=== PATIENT | male | born 1970 | race Caucasian/White ===

== ENCOUNTER 2021-07-01 20:41 | Inpatient (IN) | payer MEDICAID ==
[~2021-07-01] VITALS: Ht 182.9 cm; Wt 88.6 kg
[2021-07-01] MEDS ORDERED: acetaminophen 325mg tablet PO ONE (21:00)
[2021-07-01 21:22] LABS: BASOPHILS # (AUTO) 0.1 X10'3 (0-0.2); BASOPHILS % (AUTO) 0.3 % (0-1); EOSINOPHILS % (AUTO) 0.1 % (0-6); HEMOGLOBIN 14.4 g/dl (14.0-17.9); LYMPHOCYTES # (AUTO) 1.1 X10'3 (1.1-4.8); LYMPHOCYTES % (AUTO) 4.8 % (21-51); MEAN CORPUSCULAR HEMOGLOBIN 27.7 PG (27.0-31.0); MEAN CORPUSCULAR HGB CONC 33.4 g/dL (33.0-36.5); MEAN PLATELET VOLUME 7.6 FL (7.4-10.4); MONOCYTES # (AUTO) 1.5 X10'3 (0-0.9); MONOCYTES % (AUTO) 6.5 % (2-12); NEUTROPHILS # (AUTO) 20.6 X10'3 (1.8-7.7); NEUTROPHILS % (AUTO) 88.3 % (42-75); PLATELET COUNT 565 X10'3 (140-440); RED BLOOD COUNT 5.19 X10'6 (4.70-6.10); RED CELL DISTRIBUTION WIDTH 13.1 % (11.5-14.5); WHITE BLOOD COUNT 23.4 X10'3 (4.5-11.0)
[2021-07-01 21:40] LABS: ALANINE AMINOTRANSFERASE 55 U/L (12-78); ALBUMIN 2.5 G/DL (3.4-5.0); ALBUMIN/GLOBULIN RATIO 0.4 (1.1-1.5); ALKALINE PHOSPHATASE 598 IU/L (46-116); ANION GAP 10 (8-16); ASPARTATE AMINO TRANSFERASE 24 U/L (10-37); BILIRUBIN,TOTAL 1.1 MG/DL (0.1-1.0); BLOOD UREA NITROGEN 9 MG/DL (7-18); BUN/CREATININE RATIO 11.3 (5.4-32.0); CALCIUM 9.3 MG/DL (8.5-10.1); CHLORIDE 89 MMOL/L (99-107); POTASSIUM 3.5 MMOL/L (3.5-5.1); SODIUM 124 MMOL/L (135-145); TOTAL PROTEIN 8.2 G/DL (6.4-8.2); eGFR > 90 ML/MIN
[2021-07-01] MEDS ORDERED: normal saline 1000ML IV soln IV ONE (21:45)
[2021-07-01] MEDS ORDERED: vancomycin/NS 1 GM ADD-VANTAGE 250 ML IV ONE (21:45)
[2021-07-01] MEDS ORDERED: cefepime 1GM/NS ADD-VANTAGE 100 ML IV STA (21:45)
[2021-07-01] MEDS ORDERED: acetaminophen 325mg tablet PO STA (21:45)
[2021-07-01 21:47] LABS: GLUCOSE 499 MG/DL (70-104)
[2021-07-01] MEDS ORDERED: morphine 4 MG/ML inj SYRINge IV PRN (21:50)
[2021-07-01] MEDS ORDERED: ondansetron/PF 4mg/2ml inj IV ONE (21:50)
[2021-07-01] MEDS ORDERED: dextrose 50%-water 50ml dispensing syringe IV PRN ×2 (22:00)
[2021-07-01] MEDS ORDERED: MESSAGE TO PHARMACY PO ONE (22:00)
[2021-07-01] MEDS ORDERED: HYDROcodone/acetaminophen 5mg/325mg tablet PO PRN (22:00)
[2021-07-01] MEDS ORDERED: morphine 2 MG/ML inj. syringe IV PRN (22:00)
[2021-07-01] MEDS ORDERED: DEXTROSE 15 GM of carb/4 tabs (each vial/BOTTLE has 4 tablets) PO PRN ×2 (22:00)
[2021-07-01] MEDS ORDERED: glucagon, human recombinant 1mg kit SUBCUT PRN (22:00)
[2021-07-01] MEDS ORDERED: HYDROcodone/acetaminophen 10/325mg tab PO PRN (22:00)
[2021-07-01] MEDS ORDERED: acetaminophen 325mg tablet PO PRN (22:00)
[2021-07-01] MEDS ORDERED: insulin Lispro (HumaLOG) vial - multi-dose SQ SCH (22:00)
[2021-07-01] MEDS ORDERED: iohexol 350 MG/ML 50ML vial IV ONE (22:08)
[2021-07-01] MEDS ORDERED: iohexol 350MG/ML 100ml bottle IV ONE (22:08)
[2021-07-01] MEDS ORDERED: nicotine 21mg patch - 24 hr TD ONE (22:15)
--- NOTE | 2021-07-01 22:45 | NUR ---
Patient in room CHEMO 360. I have received report from CHARISSE Alex and had the opportunity to ask questions and assume patient care.
--- NOTE | 2021-07-01 23:25 | NUR ---
pt arrived to floor via gurney. pt transferred to bed without problem. pt settled in bed.
[2021-07-01 23:44] LABS: C-REACTIVE PROTEIN 28.18 MG/DL (0.0-0.5)
[2021-07-01] MEDS: normal saline 1000ml 1,000 ML IV SCH (23:45)
[2021-07-02] VITALS (11 sets, daily range): BP systolic 100–141; BP diastolic 51–86
[2021-07-02] MEDS ORDERED: heparin 25,000 UNIT/250ml bag 250 ML IV SCH (00:05)
[2021-07-02] MEDS ORDERED: heparin 10,000 units/1 ML INJ IV PRN (00:05)
[2021-07-02] MEDS ORDERED: heparin 10,000 units/1 ML INJ IV ONE (00:05)
[2021-07-02] MEDS ORDERED: mineral oil 133ml enema RC PRN (00:05)
[2021-07-02] MEDS ORDERED: clindamycin 600mg/D5W 50ml 50 ML IV ONE (00:05)
--- NOTE | 2021-07-02 00:10 | NUR ---
Dr. Jurado at bedside looking at pts wound on L foot. using doppler to find pulse. He didn't hear one. Dr. Jurado left. Within [address] Sebastian was at bedside also checking the wound and leg. discussed briefly with pt about going for surgery today.
[2021-07-02] MEDS: morphine 2 MG/ML inj. syringe IV PRN (03:54)
[2021-07-02] MEDS: vancomycin/NS 1 GM ADD-VANTAGE 250 ML IV SCH ×3 (05:33→22:21)
[2021-07-02 06:33] LABS: BASOPHILS # (AUTO) 0.1 X10'3 (0-0.2); BASOPHILS % (AUTO) 0.2 % (0-1); EOSINOPHILS # (AUTO) 0.1 X10'3 (0-0.9); EOSINOPHILS % (AUTO) 0.3 % (0-6); HEMATOCRIT 39.3 % (42.0-52.0); HEMOGLOBIN 13.4 g/dl (14.0-17.9); LYMPHOCYTES # (AUTO) 1.8 X10'3 (1.1-4.8); LYMPHOCYTES % (AUTO) 7.7 % (21-51); MEAN CORPUSCULAR HEMOGLOBIN 28.2 PG (27.0-31.0); MEAN CORPUSCULAR HGB CONC 34.2 g/dL (33.0-36.5); MEAN CORPUSCULAR VOLUME 82.6 FL (78-98); MEAN PLATELET VOLUME 7.5 FL (7.4-10.4); MONOCYTES # (AUTO) 1.7 X10'3 (0-0.9); MONOCYTES % (AUTO) 7.3 % (2-12); NEUTROPHILS # (AUTO) 19.3 X10'3 (1.8-7.7); NEUTROPHILS % (AUTO) 84.5 % (42-75); PLATELET COUNT 518 X10'3 (140-440); RED BLOOD COUNT 4.76 X10'6 (4.70-6.10); RED CELL DISTRIBUTION WIDTH 13.2 % (11.5-14.5); WHITE BLOOD COUNT 22.9 X10'3 (4.5-11.0)
--- NOTE | 2021-07-02 06:50 | NUR ---
Patient in room CHEMO 360. I have received report from CHARISSE Thomas and had the opportunity to ask questions and assume patient care.
--- NOTE | 2021-07-02 06:51 | NUR ---
Problems reprioritized. Patient report given, questions answered & plan of care reviewed with CHARISSE Estrada.
[2021-07-02 06:57] LABS: BLOOD UREA NITROGEN 8 MG/DL (7-18); BUN/CREATININE RATIO 14.3 (5.4-32.0); CALCIUM 8.8 MG/DL (8.5-10.1); CHLORIDE 94 MMOL/L (99-107); CHOL/HDL RATIO 8.8 (0.00-4.99); CHOLESTEROL 150 MG/DL (0-200); CREATININE 0.56 MG/DL (0.60-1.10); GLUCOSE 161 MG/DL (70-104); HDL CHOLESTEROL 17 MG/DL (35-60); LDL CHOLESTEROL 101 MG/DL (50-100); POTASSIUM 3.1 MMOL/L (3.5-5.1); SODIUM 130 MMOL/L (135-145); TRIGLYCERIDES 140 MG/DL (20-135); eGFR > 90 ML/MIN
[2021-07-02] MEDS ORDERED: NO HOME MEDS (07:18)
[2021-07-02] MEDS: docusate sod 100mg capsule PO SCH ×2 (07:21→20:37)
[2021-07-02] MEDS: enoxaparin 40mg/0.4ml syringe SUBCUT SCH (07:21)
[2021-07-02 07:38] LABS: ANION GAP 13 (8-16)
[2021-07-02] MEDS: normal saline 1000ml 1,000 ML IV SCH ×2 (08:00→18:00)
[2021-07-02 08:30] LABS: PRE OP PARTIAL THROMB. TIME 26 SECONDS (22-32)
[2021-07-02] MEDS: metroNIDAZOLE-Flagyl 500mg/NS 100 ML IV SCH ×2 (08:47→16:25)
[2021-07-02 08:53] LABS: MAGNESIUM 1.8 MG/DL (1.5-2.4)
[2021-07-02] MEDS ORDERED: magnesium 2GM in 50ml NS 50 ML IV PRN (08:55)
[2021-07-02] MEDS ORDERED: magnesium 4gm in 100ml NS 100 ML IV PRN (08:55)
[2021-07-02] MEDS ORDERED: magnesium Cl slow-release 64mg tablet PO PRN (08:55)
[2021-07-02] MEDS ORDERED: potassium CL 10mEq/100ml bag 100 ML IV PRN (08:55)
[2021-07-02] MEDS ORDERED: potassium Cl 20 mEq SR tablet PO PRN (08:55)
[2021-07-02] MEDS: potassium Cl 20 mEq SR tablet PO PRN ×2 (09:09→16:25)
[2021-07-02] MEDS ORDERED: morphine 4 MG/ML inj SYRINge IV PRN (11:05)
[2021-07-02] MEDS ORDERED: fentaNYL/PF 50MCG/1 ML 2ML syringe IV PRN ×2 (11:05)
[2021-07-02] MEDS ORDERED: morphine 2 MG/ML inj. syringe IV PRN (11:05)
[2021-07-02] MEDS ORDERED: labetalol 20mg/4ml (5mg/ml) syringe IV PRN (11:05)
[2021-07-02] MEDS ORDERED: ringers solution, lacted 1,000 ML IV SCH (11:05)
[2021-07-02] MEDS ORDERED: hydrALAZINE 20mg/ml inj. IV PRN (11:05)
[2021-07-02] MEDS ORDERED: ondansetron/PF 4mg/2ml inj IV PRN (11:05)
[2021-07-02] MEDS ORDERED: dexamethasone sod phosphate 10mg/ml inj ONE (12:18)
[2021-07-02] MEDS ORDERED: sevoflurane 250ml liquid IH ONE (12:18)
[2021-07-02] MEDS ORDERED: fentaNYL /PF 50mcg/ml 5ml ampule ONE (12:26)
[2021-07-02] MEDS ORDERED: MIDAZolam 1 MG/ML 5ML VIAL ONE (12:26)
[2021-07-02] MEDS ORDERED: propofol inj 20 ML IV ONE (12:31)
[2021-07-02] MEDS ORDERED: ondansetron/PF 4mg/2ml inj ONE (12:32)
[2021-07-02] MEDS ORDERED: LIDOcaine 2% (20mg/ml) 5ml vial ONE (12:32)
[2021-07-02 12:41] LABS: HEMOGLOBIN A1C > 14.0 % (4.5-6.2)
--- NOTE | 2021-07-02 13:25 | NUR ---
Received from OR via BED, accompanied by Anesthesiologist MAXINE and report given by Anesthesiolgist. PT DROWSY, OXYGENATING WELL ON 10 LPM O2 VIA MASK, NO RESP DISTRESS NOTED. PT DENIES NAUSEA, NO INITIAL COMPLAINT OF ANY PAIN. L BKA STUMP WITH DSG AND STUMP SOCK, CDI. VSS. SCD TO RLE
--- NOTE | 2021-07-02 14:30 | NUR ---
Report called to receiving nurse. Transferred via BED Belongings IN PT ROOM. VSS. TOLERATING PO FLUIDS WELL. MEDICATED FOR L STUMP PAIN WITH FENTANYL, GOOD PAIN RELIEF. BG>200, NOTIFIED ANESTHESIA. NO ORDERS RECD. TRANSFERRED BACK TO 3 SURG IN STABLE CONDITION. Special Issues communicated to receiving nurse.
--- NOTE | 2021-07-02 14:30 | NUR ---
Received report from Christianne BEGUM RN
--- NOTE | 2021-07-02 14:45 | NUR ---
Nutrition consult: Pt admit for infected wound of the left foot with no known PMH DM though BG 499 mg/dL on admit with A1c greater than 14.0%, newly diagnosed T2DM this admit per H&P. Per MD note pt with LLL necrotizing soft tissue infection. Pt s/p urgent BKA today. Pt would benefit from high protein and DM educations once stable. Patient's diet has just been advanced to CHO controlled from NPO, pending first meal since diet advancement. LBM 07/01. Will continue to follow closely. Recommendations: 1) Continue CHO controlled diet 2) Monitor need for ONS/additional protein 3) Bowel care PRN 4) Scaled weight this admit; weekly scaled weights thereafter 5) High protein and DM educations once stable; s/p left BKA 07/02 and newly diagnosed T2DM with A1c greater than 14.0% Addendum: 07/02/21 at [address] Amended: Links added.
[2021-07-02] MEDS: oxyCODONE/APAP 10/325mg tablet PO PRN (15:28)
--- NOTE | 2021-07-02 18:40 | NUR ---
Problems reprioritized. Patient report given, questions answered & plan of care reviewed with CHARISSE Thomas.
[2021-07-02] MEDS: K and/or MAG REPLACEMENT MC SCH (20:00)
[2021-07-02] MEDS ORDERED: dextrose 50%-water 50ml dispensing syringe IV PRN ×2 (20:35)
[2021-07-02] MEDS ORDERED: DEXTROSE 15 GM of carb/4 tabs (each vial/BOTTLE has 4 tablets) PO PRN ×2 (20:35)
[2021-07-02] MEDS ORDERED: glucagon, human recombinant 1mg kit SUBCUT PRN (20:35)
[2021-07-02] MEDS ORDERED: MESSAGE TO PHARMACY PO ONE (20:35)
[2021-07-02] MEDS: cefTRIAXone 1g/NS 100ml IVPB 100 ML IV SCH (20:38)
[2021-07-02] MEDS ORDERED: insulin glargine (Lantus) pen - multi-dose SQ SCH (21:00)
[2021-07-02] MEDS ORDERED: VANCOMYCIN LEVEL IV ONE (21:30)
[2021-07-02] MEDS: insulin Lispro (HumaLOG) vial - multi-dose SQ SCH (22:06)
[2021-07-02] MEDS: insulin glargine (Lantus) pen - multi-dose SQ SCH (22:08)
[2021-07-03 00:01] VITALS: BP 147/82
[2021-07-03] MEDS: metroNIDAZOLE-Flagyl 500mg/NS 100 ML IV SCH ×3 (01:03→16:27)
[2021-07-03] MEDS: normal saline 1000ml 1,000 ML IV SCH ×3 (04:34→19:48)
[2021-07-03] MEDS: oxyCODONE/APAP 10/325mg tablet PO PRN ×3 (05:19→16:38)
[2021-07-03] MEDS: vancomycin/NS 1 GM ADD-VANTAGE 250 ML IV SCH ×2 (05:44→13:58)
[2021-07-03 05:57] LABS: BASOPHILS % (AUTO) 0.1 % (0-1); EOSINOPHILS % (AUTO) 0 % (0-6); HEMATOCRIT 37.9 % (42.0-52.0); HEMOGLOBIN 12.8 g/dl (14.0-17.9); LYMPHOCYTES % (AUTO) 6.5 % (21-51); MEAN CORPUSCULAR HGB CONC 33.7 g/dL (33.0-36.5); MEAN CORPUSCULAR VOLUME 83.1 FL (78-98); MEAN PLATELET VOLUME 7.9 FL (7.4-10.4); MONOCYTES % (AUTO) 6.4 % (2-12); NEUTROPHILS # (AUTO) 13.6 X10'3 (1.8-7.7); PLATELET COUNT 569 X10'3 (140-440); RED BLOOD COUNT 4.56 X10'6 (4.70-6.10); RED CELL DISTRIBUTION WIDTH 13.4 % (11.5-14.5); WHITE BLOOD COUNT 15.7 X10'3 (4.5-11.0)
[2021-07-03 06:08] LABS: ALBUMIN 1.9 G/DL (3.4-5.0); ANION GAP 8 (8-16); BLOOD UREA NITROGEN 19 MG/DL (7-18); BUN/CREATININE RATIO 33.9 (5.4-32.0); CALCIUM 8.5 MG/DL (8.5-10.1); CHLORIDE 99 MMOL/L (99-107); CREATININE 0.56 MG/DL (0.60-1.10); GLUCOSE 353 MG/DL (70-104); POTASSIUM 4.7 MMOL/L (3.5-5.1); SODIUM 130 MMOL/L (135-145); TOTAL CARBON DIOXIDE 22.6 MMOL/L (24-32); eGFR > 90 ML/MIN
--- NOTE | 2021-07-03 06:08 | NUR ---
Patient in room CHEMO 360. I have received report from CHARISSE Estrada and had the opportunity to ask questions and assume patient care.
[2021-07-03 06:30] VITALS: BP 129/71
--- NOTE | 2021-07-03 06:50 | NUR ---
Patient in room CHEMO 360. I have received report from CHARISSE Thomas and had the opportunity to ask questions and assume patient care.
[2021-07-03] MEDS: K and/or MAG REPLACEMENT MC SCH ×2 (07:40→20:00)
[2021-07-03] MEDS: docusate sod 100mg capsule PO SCH ×2 (09:09→19:45)
[2021-07-03] MEDS: enoxaparin 40mg/0.4ml syringe SUBCUT SCH (09:10)
[2021-07-03] MEDS: mag hydrox/Alum hydrox/simeth 30ml oral suspension PO PRN (09:10)
[2021-07-03] MEDS: insulin Lispro (HumaLOG) vial - multi-dose SQ SCH ×3 (09:16→19:48)
[2021-07-03] MEDS: magnesium hydroxide 30ml (MOM) UD suspension PO PRN (09:24)
[2021-07-03] MEDS: NUT.TX.GLUC.INTOLER,LAC-FR,SOY (GLUCERNA) 237 ML PO SCH ×2 (13:11→18:04)
--- NOTE | 2021-07-03 18:50 | NUR ---
Problems reprioritized. Patient report given, questions answered & plan of care reviewed with CHARISSE Brock.
[2021-07-03 19:00] VITALS: BP 123/70
--- NOTE | 2021-07-03 19:30 | NUR ---
Patient in room CHEMO 346. I have received report from Delmy MCQUEEN and had the opportunity to ask questions and assume patient care. Addendum: 07/03/21 at 1942 by Lea Kenney RN Amended: Links added.
[2021-07-03] MEDS: insulin glargine (Lantus) pen - multi-dose SQ SCH (21:00)
[2021-07-03] MEDS ORDERED: VANCOMYCIN LEVEL IV ONE (21:30)
--- NOTE | 2021-07-03 22:30 | NUR ---
Pt. refusing care until room change. Pt. states, "I wanted a window bed and nobody has done anything regarding my request" Spoke with the head nurse and we made room changes to accomode pt's request. Upon room chnage pt. started to sweat profusely. Checked pt's blood sugar and results were 45mg/dl immediately implemented hypo/hyperglycemic protocol. Pt. still awake and alert at this time. Follow up blood sugars at 2245 BS 177mg/dl, and 2300 BS 153mg/dl- pt still awake and alert at this time. Pt. aslo requested for a sandwich which was provided. Addendum: 07/03/21 at 2356 by Lea Kenney RN Amended: Links added.
[2021-07-03] MEDS: Melatonin 3mg tablet PO SCH (22:56)
[2021-07-03] MEDS: cefTRIAXone 1g/NS 100ml IVPB 100 ML IV SCH (22:56)
[2021-07-04] VITALS: BP 121/77
[2021-07-04] MEDS: vancomycin/NS 1 GM ADD-VANTAGE 250 ML IV SCH (00:26)
[2021-07-04] MEDS: morphine 2 MG/ML inj. syringe IV PRN ×3 (00:26→18:36)
[2021-07-04] MEDS: mag hydrox/Alum hydrox/simeth 30ml oral suspension PO PRN (00:31)
[2021-07-04] MEDS: metroNIDAZOLE-Flagyl 500mg/NS 100 ML IV SCH ×2 (00:33→09:33)
[2021-07-04] MEDS: ondansetron/PF 4mg/2ml inj IV PRN (04:38)
[2021-07-04] MEDS: LORazepam 0.5 MG tablet PO PRN ×2 (04:38→10:16)
--- NOTE | 2021-07-04 04:53 | NUR ---
Pt. awake c/o nausea without emesis, and c/o pain to left stump level of 8/10, and very anxious. Medicated pt. as ordered for current status. No emesis at this time. Addendum: 07/04/21 at 0456 by Lea Kenney RN Amended: Links added.
--- NOTE | 2021-07-04 06:25 | NUR ---
Patient in room CHEMO 355. I have received report from CHARISSE Tate and had the opportunity to ask questions and assume patient care.
[2021-07-04 06:30] VITALS: BP 139/76
--- NOTE | 2021-07-04 06:30 | NUR ---
Problems reprioritized. Patient report given, questions answered & plan of care reviewed with Natalie MCQUEEN. Addendum: 07/04/21 at 0702 by Lea Kenney RN Amended: Links added.
[2021-07-04] MEDS: VANCOmycin 1250MG/NS 250ml Bag 250 ML IV SCH ×3 (07:19→23:07)
[2021-07-04] MEDS: NUT.TX.GLUC.INTOLER,LAC-FR,SOY (GLUCERNA) 237 ML PO SCH ×3 (08:00→18:27)
[2021-07-04 08:57] LABS: ALBUMIN 1.7 G/DL (3.4-5.0); ANION GAP 7 (8-16); BLOOD UREA NITROGEN 13 MG/DL (7-18); BUN/CREATININE RATIO 28.3 (5.4-32.0); CALCIUM 7.8 MG/DL (8.5-10.1); CHLORIDE 103 MMOL/L (99-107); CREATININE 0.46 MG/DL (0.60-1.10); GLUCOSE 204 MG/DL (70-104); MAGNESIUM 1.8 MG/DL (1.5-2.4); POTASSIUM 4.2 MMOL/L (3.5-5.1); SODIUM 135 MMOL/L (135-145); TOTAL CARBON DIOXIDE 25.5 MMOL/L (24-32); eGFR > 90 ML/MIN
[2021-07-04 09:00] LABS: BASOPHILS % (AUTO) 0.2 % (0-1); EOSINOPHILS # (AUTO) 0.1 X10'3 (0-0.9); EOSINOPHILS % (AUTO) 0.7 % (0-6); HEMATOCRIT 35.2 % (42.0-52.0); HEMOGLOBIN 11.7 g/dl (14.0-17.9); LYMPHOCYTES # (AUTO) 2.2 X10'3 (1.1-4.8); LYMPHOCYTES % (AUTO) 16.6 % (21-51); MEAN CORPUSCULAR HGB CONC 33.3 g/dL (33.0-36.5); MEAN CORPUSCULAR VOLUME 84.1 FL (78-98); MEAN PLATELET VOLUME 7.4 FL (7.4-10.4); MONOCYTES # (AUTO) 1.3 X10'3 (0-0.9); MONOCYTES % (AUTO) 9.8 % (2-12); NEUTROPHILS # (AUTO) 9.7 X10'3 (1.8-7.7); NEUTROPHILS % (AUTO) 72.7 % (42-75); PLATELET COUNT 550 X10'3 (140-440); RED BLOOD COUNT 4.19 X10'6 (4.70-6.10); RED CELL DISTRIBUTION WIDTH 13.1 % (11.5-14.5); WHITE BLOOD COUNT 13.3 X10'3 (4.5-11.0)
[2021-07-04] MEDS: docusate sod 100mg capsule PO SCH ×2 (10:03→20:36)
[2021-07-04] MEDS: oxyCODONE/APAP 10/325mg tablet PO PRN ×3 (10:03→22:12)
[2021-07-04] MEDS: enoxaparin 40mg/0.4ml syringe SUBCUT SCH (10:04)
[2021-07-04] MEDS: normal saline 1000ml 1,000 ML IV SCH ×3 (10:06→23:09)
[2021-07-04] MEDS: K and/or MAG REPLACEMENT MC SCH ×2 (10:07→20:00)
[2021-07-04] MEDS: insulin Lispro (HumaLOG) vial - multi-dose SQ SCH ×3 (10:12→20:08)
[2021-07-04 11:00] VITALS: BP 147/83
[2021-07-04] MEDS ORDERED: bisacodyl 10mg suppository rectal RC PRN (13:00)
--- NOTE | 2021-07-04 18:40 | NUR ---
Problems reprioritized. Patient report given, questions answered & plan of care reviewed with CHARISSE Martinez.
[2021-07-04 19:10] VITALS: BP 127/61
[2021-07-04] MEDS: metroNIDAZOLE 500mg tablet PO SCH (20:36)
[2021-07-04] MEDS: cefTRIAXone 1g/NS 100ml IVPB 100 ML IV SCH (20:36)
[2021-07-04] MEDS: Melatonin 3mg tablet PO SCH (20:36)
[2021-07-04] MEDS: insulin glargine (Lantus) pen - multi-dose SQ SCH (21:44)
[2021-07-05] MEDS ORDERED: VANCOMYCIN LEVEL IV ONE ×2 (06:30→14:30)
--- NOTE | 2021-07-05 06:36 | NUR ---
Problems reprioritized. Patient report given, questions answered & plan of care reviewed with MARK ANTHONY. Addendum: 07/05/21 at 0637 by Jose Roberto Mitchell RN Amended: Links added.
[2021-07-05 07:00] VITALS: BP 145/89
[2021-07-05 07:42] VITALS: BP 145/89
[2021-07-05] MEDS: metroNIDAZOLE 500mg tablet PO SCH ×3 (07:50→20:29)
[2021-07-05] MEDS: acetaminophen 325mg tablet PO PRN ×2 (07:50→20:28)
[2021-07-05] MEDS: docusate sod 100mg capsule PO SCH ×2 (07:50→20:28)
[2021-07-05] MEDS: VANCOmycin 1250MG/NS 250ml Bag 250 ML IV SCH ×3 (07:50→23:36)
[2021-07-05] MEDS: enoxaparin 40mg/0.4ml syringe SUBCUT SCH (07:51)
[2021-07-05] MEDS: NUT.TX.GLUC.INTOLER,LAC-FR,SOY (GLUCERNA) 237 ML PO SCH ×3 (08:00→18:00)
[2021-07-05] MEDS: K and/or MAG REPLACEMENT MC SCH ×2 (08:00→19:10)
[2021-07-05 09:16] LABS: EOSINOPHILS # (AUTO) 0.1 X10'3 (0-0.9); HEMOGLOBIN 12.5 g/dl (14.0-17.9); LYMPHOCYTES # (AUTO) 1.7 X10'3 (1.1-4.8)
[2021-07-05 09:18] LABS: BASOPHILS % (AUTO) 0.3 % (0-1); HEMATOCRIT 37.8 % (42.0-52.0); LYMPHOCYTES % (AUTO) 13.9 % (21-51); MEAN CORPUSCULAR HEMOGLOBIN 27.9 PG (27.0-31.0); MEAN CORPUSCULAR HGB CONC 33.2 g/dL (33.0-36.5); MEAN PLATELET VOLUME 7.2 FL (7.4-10.4); MONOCYTES # (AUTO) 1.2 X10'3 (0-0.9); NEUTROPHILS % (AUTO) 74.8 % (42-75); PLATELET COUNT 618 X10'3 (140-440); RED BLOOD COUNT 4.49 X10'6 (4.70-6.10); RED CELL DISTRIBUTION WIDTH 13.4 % (11.5-14.5)
[2021-07-05 09:43] LABS: ALBUMIN 1.9 G/DL (3.4-5.0); BLOOD UREA NITROGEN 8 MG/DL (7-18); CHLORIDE 98 MMOL/L (99-107); GLUCOSE 180 MG/DL (70-104); MAGNESIUM 1.8 MG/DL (1.5-2.4); POTASSIUM 3.8 MMOL/L (3.5-5.1); TOTAL CARBON DIOXIDE 24.5 MMOL/L (24-32); eGFR > 90 ML/MIN
[2021-07-05 09:44] LABS: ANION GAP 7 (8-16); SODIUM 129 MMOL/L (135-145)
[2021-07-05 11:00] VITALS: BP 156/83
--- NOTE | 2021-07-05 11:14 | NUR ---
Paged Dr. Umana [facility] Lidia RN ext [phone]. RE: Sumeet Galloway. Patient like to speak to you krupa. He also wants to go home but like to speak to you at bedside
[2021-07-05 12:58] VITALS: BP 156/83
[2021-07-05] MEDS: normal saline 1000ml 1,000 ML IV SCH (13:23)
--- NOTE | 2021-07-05 13:27 | NUR ---
Per Dr. Umana, patient is not going home today as he needs rehab. I told this to patient, he does not seem happy
[2021-07-05] MEDS: insulin Lispro (HumaLOG) vial - multi-dose SQ SCH ×2 (14:00→20:40)
--- NOTE | 2021-07-05 14:57 | NUR ---
Reassessment: Pt PO overall ~45% avg initial carb controlled meals though ~25% avg most recent meals w/ 100% Glucerna ONS TIDWM ordered by RN in EMR partially meeting needs. Pt now s/p L BKA this admit per EMR. RD d/w RN regarding thiamin, folic, MVI supplementation per physician discretion as hx frequent etoh and meth use per ER note. Pt seen by RD for written/verbal high protein/DM eds w/ RD contact information provided. Pt frustrated during RD visit though was agreeable to written eds w/ RD contact information and verbal high protein ed but not verbal DM ed. Pt reports is aware of new DM DX, mother has DM, and plans for going vegan together following discharge. RD verbally educated pt on high protein vegan options and vegan vitamin supplementation needs. RD encouraged pt to contact dietitian's office if further questions/concerns. Pt is agreeable to strawberry-banana Kashmir smoothie BIDBL for wound healing; MD notified. Pt reports has no teeth though when RD offered texture modifications pt declines. LBM 4/3 receiving routine colace. Will continue to monitor. Recommendations: 1) Continue CHO controlled diet; encourage PO 2) No teeth declines alternative textures modificiation; monitor for chop/grind food needs per pt preference 3) Glucerna TIDWM; strawberry-banana Kashmir smoothie BIDBL for wound healing pending MD verification in EMR 4) Routine bowel care 5) Consider thiamin, folic, MVI given reported etoh hx per physician discretion 6) Scaled weight this admit; weekly scaled weights thereafter Addendum: 07/05/21 at [address] Amended: Links added.
--- NOTE | 2021-07-05 17:12 | NUR ---
supervised student Sherry low pass this shift
--- NOTE | 2021-07-05 19:06 | NUR ---
Patient in room CHEMO 355. I have received report from Lidia MCQUEEN and had the opportunity to ask questions and assume patient care.
[2021-07-05 19:53] VITALS: BP 151/79
[2021-07-05] MEDS: Melatonin 3mg tablet PO SCH (20:27)
[2021-07-05] MEDS: cefTRIAXone 1g/NS 100ml IVPB 100 ML IV SCH (20:31)
[2021-07-05] MEDS: insulin glargine (Lantus) pen - multi-dose SQ SCH (20:41)
[2021-07-05 23:48] VITALS: BP 167/83
[2021-07-06] MEDS: oxyCODONE/APAP 10/325mg tablet PO PRN ×3 (01:02→23:21)
[2021-07-06] MEDS: normal saline 1000ml 1,000 ML IV SCH ×3 (02:00→21:36)
--- NOTE | 2021-07-06 06:23 | NUR ---
Problems reprioritized. Patient report given, questions answered & plan of care reviewed with Ivanna MCQUEEN.
[2021-07-06 06:28] LABS: BASOPHILS % (AUTO) 0.4 % (0-1); EOSINOPHILS # (AUTO) 0.2 X10'3 (0-0.9); EOSINOPHILS % (AUTO) 1.4 % (0-6); HEMATOCRIT 37.9 % (42.0-52.0); HEMOGLOBIN 12.9 g/dl (14.0-17.9); LYMPHOCYTES # (AUTO) 1.9 X10'3 (1.1-4.8); LYMPHOCYTES % (AUTO) 17.3 % (21-51); MEAN CORPUSCULAR HGB CONC 34.1 g/dL (33.0-36.5); MEAN CORPUSCULAR VOLUME 84.9 FL (78-98); MONOCYTES # (AUTO) 1.2 X10'3 (0-0.9); MONOCYTES % (AUTO) 10.9 % (2-12); NEUTROPHILS # (AUTO) 7.7 X10'3 (1.8-7.7); PLATELET COUNT 622 X10'3 (140-440); RED BLOOD COUNT 4.46 X10'6 (4.70-6.10); RED CELL DISTRIBUTION WIDTH 13.2 % (11.5-14.5); WHITE BLOOD COUNT 10.9 X10'3 (4.5-11.0)
[2021-07-06 06:32] LABS: ALBUMIN 1.9 G/DL (3.4-5.0); ANION GAP 9 (8-16); BLOOD UREA NITROGEN 5 MG/DL (7-18); BUN/CREATININE RATIO 10.6 (5.4-32.0); CALCIUM 8.3 MG/DL (8.5-10.1); CHLORIDE 102 MMOL/L (99-107); CREATININE 0.47 MG/DL (0.60-1.10); GLUCOSE 148 MG/DL (70-104); MAGNESIUM 1.9 MG/DL (1.5-2.4); POTASSIUM 3.8 MMOL/L (3.5-5.1); SODIUM 136 MMOL/L (135-145); TOTAL CARBON DIOXIDE 24.6 MMOL/L (24-32); eGFR > 90 ML/MIN
[2021-07-06] MEDS: VANCOmycin 1250MG/NS 250ml Bag 250 ML IV SCH ×2 (07:00→19:35)
[2021-07-06 07:08] VITALS: BP 150/68
[2021-07-06] MEDS ORDERED: JUVEN Smoothie Arginine/Glut./Ca2+Bmb (Juven 19.3pkt) 240ml cup PO SCH (07:30)
[2021-07-06] MEDS: K and/or MAG REPLACEMENT MC SCH ×2 (08:00→19:41)
[2021-07-06] MEDS: insulin Lispro (HumaLOG) vial - multi-dose SQ SCH ×2 (08:13→18:48)
[2021-07-06] MEDS: acetaminophen 325mg tablet PO PRN (08:34)
[2021-07-06] MEDS: docusate sod 100mg capsule PO SCH ×2 (08:36→19:34)
[2021-07-06] MEDS: metroNIDAZOLE 500mg tablet PO SCH ×3 (08:38→20:17)
[2021-07-06] MEDS: enoxaparin 40mg/0.4ml syringe SUBCUT SCH (08:40)
[2021-07-06] MEDS: NUT.TX.GLUC.INTOLER,LAC-FR,SOY (GLUCERNA) 237 ML PO SCH ×3 (08:47→18:00)
[2021-07-06 11:00] VITALS: BP 135/89
--- NOTE | 2021-07-06 11:41 | NUR ---
Student Medication Administration:For this medication-pass time frame [id number], all medications were reviewed,administered and documented per hospital policy by Jim Wiggins. Student documentation: I have reviewed and agree with all interventions, assessments performed and documented by Jim Wiggins.
--- NOTE | 2021-07-06 12:28 | NUR ---
Case management paged regarding patient's request for assistance setting up PCP.
--- NOTE | 2021-07-06 14:17 | NUR ---
PAGER ID: [phone] MESSAGE: [phone]. Patient wants to leave AMA if he is not discharged today. Ivanna MCQUEEN [phone]
--- NOTE | 2021-07-06 15:39 | NUR ---
PAGER ID: [phone] MESSAGE: [phone]. Patient is upset about discharge and wants to speak to you. Ivanna MCQUEEN [phone]
--- NOTE | 2021-07-06 16:13 | NUR ---
PAGER ID: [phone] MESSAGE: [phone]. Patient reports RLE and all fingertips going numb. He also report chest pain when paying flat. Ivanna MCQUEEN [phone]
[2021-07-06] MEDS: LORazepam 0.5 MG tablet PO PRN (16:29)
[2021-07-06 16:46] VITALS: BP 155/87
--- NOTE | 2021-07-06 16:55 | NUR ---
PAGER ID: [phone] MESSAGE: [phone]. Rapid called for patient. Slight ST elevation compared to previous EKG. Says he is pain free now. Ivanna MCQUEEN [phone]
[2021-07-06 17:30] LABS: ALANINE AMINOTRANSFERASE 172 U/L (12-78); ALBUMIN/GLOBULIN RATIO 0.4 (1.1-1.5); ALKALINE PHOSPHATASE 569 IU/L (46-116); ANION GAP 10 (8-16); ASPARTATE AMINO TRANSFERASE 166 U/L (10-37); BILIRUBIN,TOTAL 0.3 MG/DL (0.1-1.0); BLOOD UREA NITROGEN 5 MG/DL (7-18); BUN/CREATININE RATIO 10.9 (5.4-32.0); CALCIUM 8.5 MG/DL (8.5-10.1); CHLORIDE 100 MMOL/L (99-107); CREATININE 0.46 MG/DL (0.60-1.10); GLUCOSE 128 MG/DL (70-104); POTASSIUM 3.8 MMOL/L (3.5-5.1); SODIUM 135 MMOL/L (135-145); TOTAL CARBON DIOXIDE 25.3 MMOL/L (24-32); TOTAL PROTEIN 6.5 G/DL (6.4-8.2); eGFR > 90 ML/MIN
[2021-07-06 17:55] LABS: APTT 25 SECONDS (22-32); D-DIMER 1.08 MG/L FEU (0-0.50)
--- NOTE | 2021-07-06 18:15 | NUR ---
Patient in room CHEMO 355. I have received report from CHARISSE Goncalves and had the opportunity to ask questions and assume patient care.
--- NOTE | 2021-07-06 18:44 | NUR ---
Patient began to report numbness in RLE and fingertips in both hands. I was able to obtain tibial and dorsalis pedis pulses, informed Dr. Leon who agreed to order ativan for patient as he became anxious that he was not able to go home today. I walked back in the room and patient reported chest pressure radiating to left shoulder and back. Dr. Leon was informed, stat EKG was obtained, rapid was called. Dr. Leon was informed throughout every change in event and patient is now being transferred to PCU for new tele orders.
--- NOTE | 2021-07-06 18:48 | NUR ---
Problems reprioritized. Patient report given, questions answered & plan of care reviewed with Martha MCQUEEN.
[2021-07-06] MEDS: Melatonin 3mg tablet PO SCH (20:17)
[2021-07-06] MEDS: insulin glargine (Lantus) pen - multi-dose SQ SCH (21:16)
[2021-07-06] MEDS: cefTRIAXone 1g/NS 100ml IVPB 100 ML IV SCH (21:36)
--- NOTE | 2021-07-06 22:46 | NUR ---
Patient in room PCU 3018. I have received report from Ghada Urrutia RN and had the opportunity to ask questions and assume patient care. Pt and all of his belongings were transferred from Surgical to PCU without difficulty. Pt stable, will continue to monitor
[2021-07-07] MEDS: magnesium hydroxide 30ml (MOM) UD suspension PO PRN (00:18)
[2021-07-07 02:00] VITALS: BP 145/68
[2021-07-07] MEDS: VANCOmycin 1250MG/NS 250ml Bag 250 ML IV SCH ×3 (03:41→19:26)
[2021-07-07] MEDS: LORazepam 0.5 MG tablet PO PRN (04:09)
--- NOTE | 2021-07-07 06:25 | NUR ---
Problems reprioritized. Patient report given, questions answered & plan of care reviewed with Kenton MCQUEEN.
[2021-07-07 07:00] VITALS: BP 130/68
[2021-07-07 07:06] LABS: MAGNESIUM 2.2 MG/DL (1.5-2.4)
[2021-07-07] MEDS: normal saline 1000ml 1,000 ML IV SCH ×2 (08:00→18:03)
[2021-07-07] MEDS: metroNIDAZOLE 500mg tablet PO SCH ×3 (08:50→19:26)
[2021-07-07] MEDS: docusate sod 100mg capsule PO SCH ×2 (08:50→19:27)
[2021-07-07] MEDS: enoxaparin 40mg/0.4ml syringe SUBCUT SCH (08:50)
[2021-07-07] MEDS: NUT.TX.GLUC.INTOLER,LAC-FR,SOY (GLUCERNA) 237 ML PO SCH ×3 (08:52→18:03)
[2021-07-07] MEDS: K and/or MAG REPLACEMENT MC SCH ×2 (09:00→19:14)
[2021-07-07 10:47] LABS: EOSINOPHILS # (AUTO) 0.2 X10'3 (0-0.9); RED CELL DISTRIBUTION WIDTH 13.5 % (11.5-14.5); WHITE BLOOD COUNT 11.3 X10'3 (4.5-11.0)
[2021-07-07 10:49] LABS: BASOPHILS # (AUTO) 0.1 X10'3 (0-0.2); BASOPHILS % (AUTO) 0.8 % (0-1); HEMOGLOBIN 12.8 g/dl (14.0-17.9); LYMPHOCYTES # (AUTO) 1.9 X10'3 (1.1-4.8); MEAN CORPUSCULAR HEMOGLOBIN 27.3 PG (27.0-31.0); MEAN CORPUSCULAR VOLUME 85.2 FL (78-98); MEAN PLATELET VOLUME 7.1 FL (7.4-10.4); MONOCYTES # (AUTO) 1.2 X10'3 (0-0.9); MONOCYTES % (AUTO) 10.2 % (2-12); NEUTROPHILS # (AUTO) 7.9 X10'3 (1.8-7.7); PLATELET COUNT 730 X10'3 (140-440)
[2021-07-07 11:00] VITALS: BP 131/66
[2021-07-07 11:48] LABS: ANION GAP 14 (8-16); BLOOD UREA NITROGEN 7 MG/DL (7-18); BUN/CREATININE RATIO 15.6 (5.4-32.0); CHLORIDE 103 MMOL/L (99-107); CREATININE 0.45 MG/DL (0.60-1.10); GLUCOSE 98 MG/DL (70-104); POTASSIUM 3.7 MMOL/L (3.5-5.1); SODIUM 137 MMOL/L (135-145); TOTAL CARBON DIOXIDE 19.7 MMOL/L (24-32); eGFR > 90 ML/MIN
[2021-07-07] MEDS ORDERED: magnesium hydroxide 30ml (MOM) UD suspension PO ONE (12:25)
[2021-07-07] MEDS: oxyCODONE/APAP 10/325mg tablet PO PRN ×2 (13:30→22:18)
[2021-07-07 15:00] VITALS: BP 157/87
--- NOTE | 2021-07-07 17:53 | NUR ---
Pt bp 171/87, Hr 78. Pt denies dizziness, headache, and chest pain. Paged Dr. Leon. Waiting for response.
[2021-07-07 18:00] VITALS: BP 174/88
[2021-07-07] MEDS: cefTRIAXone 1g/NS 100ml IVPB 100 ML IV SCH (19:26)
[2021-07-07] MEDS: Melatonin 3mg tablet PO SCH (19:27)
[2021-07-07] MEDS: insulin Lispro (HumaLOG) vial - multi-dose SQ SCH (19:36)
[2021-07-07 22:00] VITALS: BP 159/85
[2021-07-07] MEDS: insulin glargine (Lantus) pen - multi-dose SQ SCH (22:16)
[2021-07-08 02:00] VITALS: BP 156/73
[2021-07-08] MEDS: acetaminophen 325mg tablet PO PRN ×2 (03:14→09:20)
[2021-07-08] MEDS: normal saline 1000ml 1,000 ML IV SCH ×2 (04:20→14:00)
[2021-07-08] MEDS: VANCOmycin 1250MG/NS 250ml Bag 250 ML IV SCH ×3 (04:24→19:14)
[2021-07-08 06:00] VITALS: BP 143/74
[2021-07-08 06:14] LABS: EOSINOPHILS # (AUTO) 0.2 X10'3 (0-0.9); MEAN CORPUSCULAR VOLUME 84.4 FL (78-98); WHITE BLOOD COUNT 9.8 X10'3 (4.5-11.0)
[2021-07-08 06:18] LABS: BASOPHILS % (AUTO) 0.4 % (0-1); HEMATOCRIT 37.3 % (42.0-52.0); HEMOGLOBIN 12.4 g/dl (14.0-17.9); LYMPHOCYTES # (AUTO) 1.7 X10'3 (1.1-4.8); LYMPHOCYTES % (AUTO) 17.3 % (21-51); MEAN CORPUSCULAR HEMOGLOBIN 28.1 PG (27.0-31.0); MEAN CORPUSCULAR HGB CONC 33.3 g/dL (33.0-36.5); MEAN PLATELET VOLUME 6.8 FL (7.4-10.4); MONOCYTES # (AUTO) 0.9 X10'3 (0-0.9); MONOCYTES % (AUTO) 9.6 % (2-12); NEUTROPHILS % (AUTO) 70.7 % (42-75); PLATELET COUNT 749 X10'3 (140-440); RED BLOOD COUNT 4.42 X10'6 (4.70-6.10); RED CELL DISTRIBUTION WIDTH 13.7 % (11.5-14.5)
[2021-07-08 06:29] LABS: ALBUMIN 1.9 G/DL (3.4-5.0); ANION GAP 8 (8-16); BLOOD UREA NITROGEN 7 MG/DL (7-18); CHLORIDE 102 MMOL/L (99-107); CREATININE 0.54 MG/DL (0.60-1.10); GLUCOSE 265 MG/DL (70-104); SODIUM 134 MMOL/L (135-145); TOTAL CARBON DIOXIDE 23.6 MMOL/L (24-32); eGFR > 90 ML/MIN
[2021-07-08] MEDS: metroNIDAZOLE 500mg tablet PO SCH (07:34)
[2021-07-08] MEDS: docusate sod 100mg capsule PO SCH ×2 (07:34→19:13)
[2021-07-08] MEDS: enoxaparin 40mg/0.4ml syringe SUBCUT SCH (07:34)
[2021-07-08] MEDS: NUT.TX.GLUC.INTOLER,LAC-FR,SOY (GLUCERNA) 237 ML PO SCH ×3 (07:37→17:50)
[2021-07-08] MEDS: K and/or MAG REPLACEMENT MC SCH ×2 (07:38→19:15)
[2021-07-08] MEDS: insulin Lispro (HumaLOG) vial - multi-dose SQ SCH ×3 (09:58→20:45)
[2021-07-08 11:00] VITALS: BP 164/79
--- NOTE | 2021-07-08 11:48 | NUR ---
Reassessment: PO intake of meals has slightly improved up to mostly 50% PO intake since dinner 07/06 and pt with mostly 100% PO intake of Glucerna TID. Kashmir smoothie still pending physician approval in EMR. Combined PO intake of ONS and meals is meeting roughly 82% estimated energy needs and 93% estimated protein needs, though pt would still benefit from Kashmir smoothie to assist with wound healing and further meeting estimated nutrient needs. LBM /. Will continue to follow and monitor need for further nutrition intervention. Recommendations: 1) Continue CHO controlled diet; encourage PO intake 2) Monitor for chop/grind food needs per pt preference; No teeth but declines alternative texture modification 3) Glucerna TIDWM; strawberry-banana Kashmir smoothie BIDBL for wound healing, pending physician verification in EMR 4) Routine bowel care 5) Consider routine thiamine, folic acid, and MVI given reported EtOH hx per physician discretion 6) Scaled weight this admit; weekly scaled weights thereafter Addendum: 07/08/21 at [address] Amended: Links added.
[2021-07-08] MEDS: mag hydrox/Alum hydrox/simeth 30ml oral suspension PO PRN ×2 (14:06→19:24)
[2021-07-08 15:00] VITALS: BP 143/65
[2021-07-08 18:00] VITALS: BP 174/77
[2021-07-08] MEDS: Melatonin 3mg tablet PO SCH (19:13)
[2021-07-08] MEDS: oxyCODONE/APAP 10/325mg tablet PO PRN ×2 (19:14→19:21)
--- NOTE | 2021-07-08 21:02 | NUR ---
Patient transferred at this time. Problems reprioritized. Patient report given, questions answered & plan of care reviewed with Clara MCQUEEN.
[2021-07-08] MEDS: insulin glargine (Lantus) pen - multi-dose SQ SCH (22:50)
[2021-07-09] VITALS: BP 146/78
[2021-07-09] MEDS: normal saline 1000ml 1,000 ML IV SCH ×3 (00:08→20:00)
[2021-07-09] MEDS: morphine 2 MG/ML inj. syringe IV PRN (02:07)
[2021-07-09] MEDS: VANCOmycin 1250MG/NS 250ml Bag 250 ML IV SCH ×3 (04:26→19:22)
[2021-07-09 08:00] VITALS: BP 148/75
[2021-07-09] MEDS: docusate sod 100mg capsule PO SCH ×2 (08:00→21:37)
[2021-07-09] MEDS: K and/or MAG REPLACEMENT MC SCH ×2 (08:00→20:00)
[2021-07-09] MEDS: mag hydrox/Alum hydrox/simeth 30ml oral suspension PO PRN ×3 (08:04→23:42)
[2021-07-09] MEDS: NUT.TX.GLUC.INTOLER,LAC-FR,SOY (GLUCERNA) 237 ML PO SCH ×3 (08:05→19:24)
[2021-07-09] MEDS: enoxaparin 40mg/0.4ml syringe SUBCUT SCH (08:05)
[2021-07-09] MEDS: insulin Lispro (HumaLOG) vial - multi-dose SQ SCH ×2 (08:23→19:33)
[2021-07-09 08:56] LABS: BASOPHILS # (AUTO) 0.1 X10'3 (0-0.2); BASOPHILS % (AUTO) 0.6 % (0-1); EOSINOPHILS # (AUTO) 0.2 X10'3 (0-0.9); EOSINOPHILS % (AUTO) 1.6 % (0-6); HEMATOCRIT 38.9 % (42.0-52.0); HEMOGLOBIN 13.1 g/dl (14.0-17.9); LYMPHOCYTES # (AUTO) 1.6 X10'3 (1.1-4.8); LYMPHOCYTES % (AUTO) 15.7 % (21-51); MEAN CORPUSCULAR HEMOGLOBIN 28.8 PG (27.0-31.0); MEAN CORPUSCULAR HGB CONC 33.6 g/dL (33.0-36.5); MEAN CORPUSCULAR VOLUME 85.6 FL (78-98); MEAN PLATELET VOLUME 6.5 FL (7.4-10.4); MONOCYTES # (AUTO) 0.9 X10'3 (0-0.9); MONOCYTES % (AUTO) 8.6 % (2-12); NEUTROPHILS # (AUTO) 7.3 X10'3 (1.8-7.7); NEUTROPHILS % (AUTO) 73.5 % (42-75); PLATELET COUNT 743 X10'3 (140-440); RED BLOOD COUNT 4.54 X10'6 (4.70-6.10); RED CELL DISTRIBUTION WIDTH 13.8 % (11.5-14.5); WHITE BLOOD COUNT 9.9 X10'3 (4.5-11.0)
[2021-07-09 09:20] LABS: ALANINE AMINOTRANSFERASE 121 U/L (12-78); ALBUMIN 2.2 G/DL (3.4-5.0); ALBUMIN/GLOBULIN RATIO 0.5 (1.1-1.5); ALKALINE PHOSPHATASE 585 IU/L (46-116); ANION GAP 8 (8-16); ASPARTATE AMINO TRANSFERASE 42 U/L (10-37); BILIRUBIN,TOTAL 0.3 MG/DL (0.1-1.0); BLOOD UREA NITROGEN 4 MG/DL (7-18); BUN/CREATININE RATIO 8.3 (5.4-32.0); CALCIUM 7.9 MG/DL (8.5-10.1); CHLORIDE 104 MMOL/L (99-107); CREATININE 0.48 MG/DL (0.60-1.10); GLUCOSE 251 MG/DL (70-104); SODIUM 138 MMOL/L (135-145); TOTAL CARBON DIOXIDE 26.4 MMOL/L (24-32); TOTAL PROTEIN 6.5 G/DL (6.4-8.2); eGFR > 90 ML/MIN
[2021-07-09 11:00] VITALS: BP 130/57
[2021-07-09 13:23] VITALS: BP 138/78
--- NOTE | 2021-07-09 18:44 | NUR ---
Problems reprioritized. Patient report given, questions answered & plan of care reviewed with Ghada Urrutia RN.
--- NOTE | 2021-07-09 18:45 | NUR ---
Patient in room CHEMO 360. I have received report from SHIVAM MCQUEEN and had the opportunity to ask questions and assume patient care.
[2021-07-09] MEDS: ondansetron/PF 4mg/2ml inj IV PRN (19:16)
[2021-07-09 20:00] VITALS: BP 160/76
[2021-07-09] MEDS: Melatonin 3mg tablet PO SCH (21:36)
[2021-07-09] MEDS: insulin glargine (Lantus) pen - multi-dose SQ SCH (21:44)
[2021-07-09] MEDS: oxyCODONE/APAP 10/325mg tablet PO PRN (23:40)
[2021-07-09] MEDS: LORazepam 0.5 MG tablet PO PRN (23:40)
[2021-07-10] MEDS ORDERED: VANCOMYCIN LEVEL IV ONE (03:00)
[2021-07-10] MEDS: normal saline 1000ml 1,000 ML IV SCH (03:49)
[2021-07-10] MEDS: VANCOmycin 1250MG/NS 250ml Bag 250 ML IV SCH (03:49)
[2021-07-10 04:08] VITALS: BP 131/73
[2021-07-10 04:09] LABS: EOSINOPHILS # (AUTO) 0.2 X10'3 (0-0.9); EOSINOPHILS % (AUTO) 2.4 % (0-6); LYMPHOCYTES # (AUTO) 2.3 X10'3 (1.1-4.8); MEAN PLATELET VOLUME 6.5 FL (7.4-10.4)
[2021-07-10 04:11] LABS: BASOPHILS % (AUTO) 0.5 % (0-1); HEMATOCRIT 38.8 % (42.0-52.0); HEMOGLOBIN 12.7 g/dl (14.0-17.9); LYMPHOCYTES % (AUTO) 23.5 % (21-51); MEAN CORPUSCULAR HEMOGLOBIN 27.7 PG (27.0-31.0); MEAN CORPUSCULAR HGB CONC 32.8 g/dL (33.0-36.5); MEAN CORPUSCULAR VOLUME 84.5 FL (78-98); MONOCYTES # (AUTO) 0.8 X10'3 (0-0.9); MONOCYTES % (AUTO) 8.6 % (2-12); NEUTROPHILS # (AUTO) 6.3 X10'3 (1.8-7.7); PLATELET COUNT 763 X10'3 (140-440); RED CELL DISTRIBUTION WIDTH 14.1 % (11.5-14.5); WHITE BLOOD COUNT 9.7 X10'3 (4.5-11.0)
[2021-07-10 04:16] LABS: ALANINE AMINOTRANSFERASE 99 U/L (12-78); ALBUMIN 2.1 G/DL (3.4-5.0); ALBUMIN/GLOBULIN RATIO 0.5 (1.1-1.5); ALKALINE PHOSPHATASE 537 IU/L (46-116); ANION GAP 8 (8-16); ASPARTATE AMINO TRANSFERASE 30 U/L (10-37); BILIRUBIN,TOTAL 0.2 MG/DL (0.1-1.0); BLOOD UREA NITROGEN 8 MG/DL (7-18); BUN/CREATININE RATIO 13.8 (5.4-32.0); CALCIUM 7.9 MG/DL (8.5-10.1); CHLORIDE 101 MMOL/L (99-107); CREATININE 0.58 MG/DL (0.60-1.10); GLUCOSE 193 MG/DL (70-104); POTASSIUM 3.8 MMOL/L (3.5-5.1); SODIUM 137 MMOL/L (135-145); TOTAL CARBON DIOXIDE 27.6 MMOL/L (24-32); TOTAL PROTEIN 6.5 G/DL (6.4-8.2); VANCOMYCIN,TROUGH 16.3 UG/ML (6.0-14.0); eGFR > 90 ML/MIN
--- NOTE | 2021-07-10 06:30 | NUR ---
Problems reprioritized. Patient report given, questions answered & plan of care reviewed with TANISHA MCQUEEN.
[2021-07-10] MEDS: enoxaparin 40mg/0.4ml syringe SUBCUT SCH (07:19)
[2021-07-10] MEDS: NUT.TX.GLUC.INTOLER,LAC-FR,SOY (GLUCERNA) 237 ML PO SCH (07:19)
[2021-07-10] MEDS: K and/or MAG REPLACEMENT MC SCH (07:43)
[2021-07-10 08:00] VITALS: BP 147/69
[2021-07-10] MEDS: insulin Lispro (HumaLOG) vial - multi-dose SQ SCH (08:03)
[2021-07-10] MEDS: docusate sod 100mg capsule PO SCH (08:09)
[2021-07-10] MEDS: oxyCODONE/APAP 10/325mg tablet PO PRN (08:12)
[2021-07-10] MEDS: mag hydrox/Alum hydrox/simeth 30ml oral suspension PO PRN (08:12)
[2021-07-10 11:00] VITALS: BP 117/76
--- NOTE | 2021-07-10 12:20 | NUR ---
Patient has decided to go AMA. He was concerned about not being able to pull money from his account from here which needed to be done. Patient educated by Nursing, Dr Rice and Dr Goodrich on need for surgery and potential risks of leaving. Patient states understanding of risks and says he [facility] after he pulls his money out of his bank account to follow up for the surgery. IV taken out, all belongings taken. Friend picked patient up. No current distress. AMA paperwork signed.
== END 2021-07-10 12:25 | disposition left against medical advice (07) | DRG 710 ==
LOC: ER 20:42 → ED HOLD 22:05 → SUR 3N 23:15 → PCU 3S 07-06 22:15 → SUR 3N 07-08 21:03
PROVIDERS: ADMIT Internal Medicine; ATTEND Internal Medicine
PROC: B4201ZZ Computerized Tomography (CT Scan) of Abdominal Aorta using Low Osmolar Contrast (ICD-10-PCS; 2021-07-01)
PROC: B4281ZZ Computerized Tomography (CT Scan) of Bilateral Renal Arteries using Low Osmolar Contrast (ICD-10-PCS; 2021-07-01)
PROC: B42C1ZZ Computerized Tomography (CT Scan) of Pelvic Arteries using Low Osmolar Contrast (ICD-10-PCS; 2021-07-01)
PROC: B42H1ZZ Computerized Tomography (CT Scan) of Bilateral Lower Extremity Arteries using Low Osmolar Contrast (ICD-10-PCS; 2021-07-01)
PROC: B4211ZZ Computerized Tomography (CT Scan) of Celiac Artery using Low Osmolar Contrast (ICD-10-PCS; 2021-07-01)
PROC: B42H1ZZ Computerized Tomography (CT Scan) of Bilateral Lower Extremity Arteries using Low Osmolar Contrast (ICD-10-PCS; 2021-07-01)
PROC: 0Y6J0Z3 Detachment at Left Lower Leg, Low, Open Approach (ICD-10-PCS; principal; 2021-07-02 12:18)
DX: A41.9 Sepsis, unspecified organism (principal); M72.6 Necrotizing fasciitis; I74.5 Embolism and thrombosis of iliac artery; I74.09 Other arterial embolism and thrombosis of abdominal aorta; I82.402 Acute embolism and thrombosis of unspecified deep veins of left lower extremity; E87.1 Hypo-osmolality and hyponatremia; L03.116 Cellulitis of left lower limb; I70.202 Unspecified atherosclerosis of native arteries of extremities, left leg; Z53.29 Procedure and treatment not carried out because of patient's decision for other reasons; N45.1 Epididymitis; Z20.822 Contact with and (suspected) exposure to COVID-19; F15.90 Other stimulant use, unspecified, uncomplicated; E11.9 Type 2 diabetes mellitus without complications; I10 Essential (primary) hypertension; Z87.891 Personal history of nicotine dependence; Z88.0 Allergy status to penicillin
CPT/HCPCS: 36415; 71045; 73620; 75635; 80048; 80053; 80061; 80202; 82948; 83036; 83605; 83735; 83880; 84145; 84484; 85025; 85379; 85384; 85610; 85651; 85730; 86140; 87040; 87081; 87635; 93005; 93922; 93925; 97110; 97116; 97161; 97530; 99291; A4618; A6222; A6223; A6253; A6446; A6449; A7000; G0378; J0696; J1100; J1650; J1815; J2250; J2270; J2405; J2704; J3010; J3370; J3490; J7030; J7120; Q9967